=== PATIENT | female | born 1960 | race African-American/Black ===

== ENCOUNTER 2019-11-04 14:14 | Inpatient (IN) | payer BC ==
[~2019-11-04] VITALS: Ht 154.9 cm; Wt 56.2 kg
[2019-11-04] VITALS (8 sets, daily range): BP systolic 99–142; BP diastolic 53–90
[~2019-11-04 14:14] MED LIST: MECL-75 PO; ONDA4TAB10 SL
[2019-11-04 14:42] LABS: BASO # 0.1 x10^3/uL (0.0-0.2); BASO % 1 % (0-3); EOS % 0 % (0-3); HEMATOCRIT 40.8 % (36.0-47.0); HEMOGLOBIN 13.7 g/dL (12.0-15.5); LYMPH # 1.7 x10^3/uL (1.0-4.8); LYMPH % 28 % (24-48); MEAN CORPUSCULAR HEMOGLOBIN 31 pg (25-35); MEAN CORPUSCULAR HGB CONC 34 g/dL (31-37); MEAN CORPUSCULAR VOLUME 94 fL (79-100); MONO # 0.4 x10^3/uL (0.0-1.1); MONO % 6 % (0-9); NEUT # 3.9 x10^3/uL (1.8-7.7); NEUT % 65 % (31-73); PLATELET COUNT 466 x10^3/uL (140-400); RED BLOOD COUNT 4.35 x10^6/uL (3.50-5.40)
[2019-11-04] MEDS ORDERED: dilTIAZem IV PUSH 25 MG/5 ML VIAL IVP ONE (14:45)
[2019-11-04 14:53] LABS: PROTHROMBIN TIME PATIENT 13.1 SEC (11.7-14.0)
[2019-11-04 14:58] LABS: CALCIUM 9.5 mg/dL (8.5-10.1); CREATININE 1.3 mg/dL (0.6-1.0); GFR 50.6; POTASSIUM 4.6 mmol/L (3.5-5.1)
--- NOTE | 2019-11-04 15:01 | RAD ---
AP chest. HISTORY: Chest pain AP view was taken of the chest. Lungs are clear. Heart is normal in size. There is no effusion. IMPRESSION: 1. No acute chest disease. Electronically signed by: Isai Damico MD (11/04/2019 2:58 PM) [facility]
[2019-11-04 15:04] LABS: ALBUMIN 4.4 g/dL (3.4-5.0); ALBUMIN/GLOBULIN RATIO 1.3 (1.0-1.7); MAGNESIUM 1.6 mg/dL (1.8-2.4); TOTAL BILIRUBIN 0.4 mg/dL (0.2-1.0); TOTAL PROTEIN 7.9 g/dL (6.4-8.2)
[2019-11-04] MEDS ORDERED: IV NORMAL SALINE 1000ML BAG 1,000 ML IV ONE (15:15)
[2019-11-04] MEDS: DILTIAZEM HCL 125 MG in IV NORMAL SALINE 100ML 100 ML IV PRN ×2 (15:30→21:53)
--- NOTE | 2019-11-04 15:31 | PHYS DOC ---
Past Medical History Past Medical History: No Pertinent History, Other Additional Past Medical Histor: intermittent vertigo Past Surgical History: Other Additional Past Surgical Histo: D&C Smoking Status: Never Smoker Alcohol Use: Rarely Drug Use: None General Adult EDM: Chief Complaint: DIZZY/LIGHT HEADED HPI: HPI: Patient is a 58 year old female who presented to ER today for evaluation of feeling dizziness, heart palpitation, and mild chest pain while she was at work today. Patient says she has been experiencing a lot of stress today at work. Patient denies any cough or fever, no abdominal pain, no nausea vomiting. Patient says she had the same type symptoms in the past, she was diagnosed with vertigo. Review of Systems: Review of Systems: Constitutional: Denies fever or chills. [] Eyes: Denies change in visual acuity. [] HENT: Denies nasal congestion or sore throat. [] Respiratory: Denies cough or shortness of breath. [] Cardiovascular: Positive for chest pain and heart palpitation GI: Denies abdominal pain, nausea, vomiting, bloody stools or diarrhea. [] : Denies dysuria. [] Musculoskeletal: Denies back pain or joint pain. [] Integument: Denies rash. [] Neurologic: Positive for dizziness, no headache, no focal weakness or deficits. Endocrine: Denies polyuria or polydipsia. [] Lymphatic: Denies swollen glands. [] Psychiatric: Denies depression or anxiety. [] Heart Score: Risk Factors: Risk Factors: DM, Current or recent (<one month) smoker, HTN, HLP, family hist ory of CAD, obesity. Risk Scores: Score 0 - 3: 2.5% MACE over next 6 weeks - Discharge Home Score 4 - 6: 20.3% MACE over next 6 weeks - Admit for Clinical Observation Score 7 - 10: 72.7% MACE over next 6 weeks - Early Invasive Strategies Current Medications: Current Medications Medications (Trade) Dose Ordered Sig/Yolande Start Time Stop Time Status Last Admin Dose Admin Diltiazem HCl (Cardizem Iv Push) 20 mg 1X ONCE 11/04/19 14:45 11/04/19 14:48 DC 11/04/19 14:59 20 MG Diltiazem HCl 125 mg/Sodium Chloride 125 ml @ 5 mls/hr CONT PRN 7/6/20 15:15 Magnesium Sulfate 50 ml @ 25 mls/hr 1X ONCE 11/04/19 16:00 11/04/19 17:59 Sodium Chloride 1,000 ml @ 1,000 mls/hr 1X ONCE 11/04/19 15:15 11/04/19 16:14 11/04/19 15:06 1,000 MLS/HR Allergies: Allergies: Allergies Coded Allergies Type Severity Reaction Last Updated Verified [place]bler And Derivatives Allergy Severe ANAPHYLATIC 02/23/17 Yes Sulfa (Sulfonamide Antibiotics) Allergy Severe HIVES 02/23/17 Yes Physical Exam: PE: Constitutional: Well developed, well nourished, no acute distress, non-toxic appearance. [] HENT: Normocephalic, atraumatic, bilateral external ears normal, oropharynx m oist, no oral exudates, nose normal. [] Eyes: PERRLA, EOMI, conjunctiva normal, no discharge. [] Neck: Normal range of motion, no tenderness, supple, no stridor. [] Cardiovascular: Tachycardia with irregular rhythm rhythm, no murmur [] Lungs & Thorax: Bilateral breath sounds clear to auscultation [] Abdomen: Bowel sounds normal, soft, no tenderness, no masses, no pulsatile masses. [] Skin: Warm, dry, no erythema, no rash. [] Back: No tenderness, no CVA tenderness. [] Extremities: No tenderness, no cyanosis, no clubbing, ROM intact, no edema. [] Neurologic: Alert and oriented X 3, normal motor function, normal sensory function, no focal deficits noted. [] Psychologic: Affect normal, judgement normal, mood normal. [] Current Patient Data: Labs: Laboratory Tests Test 11/04/19 14:26 White Blood Count 6.0 x10^3/uL (4.0-11.0) Red Blood Count 4.35 x10^6/uL (3.50-5.40) Hemoglobin 13.7 g/dL (12.0-15.5) Hematocrit 40.8 % (36.0-47.0) Mean Corpuscular Volume 94 fL (79-100) Mean Corpuscular Hemoglobin 31 pg (25-35) Mean Corpuscular Hemoglobin Concent 34 g/dL (31-37) Red Cell Distribution Width 14.0 % (11.5-14.5) Platelet Count 466 x10^3/uL (140-400) H Neutrophils (%) (Auto) 65 % (31-73) Lymphocytes (%) (Auto) 28 % (24-48) Monocytes (%) (Auto) 6 % (0-9) Eosinophils (%) (Auto) 0 % (0-3) Basophils (%) (Auto) 1 % (0-3) Neutrophils # (Auto) 3.9 x10^3/uL (1.8-7.7) Lymphocytes # (Auto) 1.7 x10^3/uL (1.0-4.8) Monocytes # (Auto) 0.4 x10^3/uL (0.0-1.1) Eosinophils # (Auto) 0.0 x10^3/uL (0.0-0.7) Basophils # (Auto) 0.1 x10^3/uL (0.0-0.2) Prothrombin Time 13.1 SEC (11.7-14.0) Prothrombin Time INR 1.0 (0.8-1.1) Activated Partial Thromboplast Time 28 SEC (24-38) Sodium Level 143 mmol/L (136-145) Potassium Level 4.6 mmol/L (3.5-5.1) Chloride Level 103 mmol/L (98-107) Carbon Dioxide Level 20 mmol/L (21-32) L Anion Gap 20 (6-14) H Blood Urea Nitrogen 15 mg/dL (7-20) Creatinine 1.3 mg/dL (0.6-1.0) H Estimated GFR (Cockcroft-Gault) 50.6 BUN/Creatinine Ratio 12 (6-20) Glucose Level 81 mg/dL (70-99) Calcium Level 9.5 mg/dL (8.5-10.1) Magnesium Level 1.6 mg/dL (1.8-2.4) L Total Bilirubin 0.4 mg/dL (0.2-1.0) Aspartate Amino Transferase (AST) 34 U/L (15-37) Alanine Aminotransferase (ALT) 26 U/L (14-59) Alkaline Phosphatase 89 U/L (46-116) Troponin I Quantitative < 0.017 ng/mL (0.000-0.055) VB-Bvm-H-Type Natriuretic Peptide 112 pg/mL (0-124) Total Protein 7.9 g/dL (6.4-8.2) Albumin 4.4 g/dL (3.4-5.0) Albumin/Globulin Ratio 1.3 (1.0-1.7) Thyroid Stimulating Hormone (TSH) 1.835 uIU/mL (0.358-3.74) Laboratory Tests 11/04/19 14:26 Laboratory Tests 11/04/19 14:26 Vital Signs: Vital Signs Date Time Temp Pulse Resp B/P (MAP) Pulse Ox O2 Delivery O2 Flow Rate FiO2 11/04/19 14:59 142 139/84 11/04/19 14:26 98.8 22 100 Nasal Cannula 3.0 98.8 EKG: EKG: EKG was done at 1424, heart rate 137 beats per minutes, atrial flutter, no ST segment elevation. Radiology/Procedures: Radiology/Procedures: [][facility] [address] [place] [address] IMAGING REPORT Signed PATIENT: KELSY PARK ACCOUNT: [id number] : 1960 LOCATION: ER AGE: 58 SEX: F EXAM STATUS: REG ER ORD. PHYSICIAN: KINA DUTTON DO REASON: chest pain PROCEDURE: PORTABLE CHEST 1V AP chest. HISTORY: Chest pain AP view was taken of the chest. Lungs are clear. Heart is normal in size. There is no effusion. IMPRESSION: 1. No acute chest disease. Electronically signed by: Isai Damico MD (11/04/2019 2:58 PM) [facility] DICTATED and SIGNED BY: ISAI DAMICO MD DATE: 11/04/19 1458 Course & Med Decision Making: Course & Med Decision Making Pertinent Labs and Imaging studies reviewed. (See chart for details) Patient is a 58-year-old female who was evaluated in the ER due to dizziness with heart palpitation. Patient was found to have new onset atrial flutter, her magnesium level was low as well. Patient was given Cardizem IV bolus and was on Cardizem drip however it did not control her rate, her magnesium level was low, she was given magnesium replacement. Heart rate continues to be irregular and fast. It was noted that she had some trace of alcohol in her system, suspect that patient might be in withdrawal from alcohol therefore patient was given 1 mg of Ativan IV, she was spontaneous converted to normal sinus rhythm. We will admit her to hospital for further evaluation and treatment. Discussed with Dr. Palmer who agreed to admit the patient. Dragon Disclaimer: Dragon Disclaimer: This electronic medical record was generated, in whole or in part, using a voice recognition dictation system. Departure Departure Impression: Primary Impression: Atrial flutter with rapid ventricular response Additional Impression: Hypomagnesemia syndrome Disposition: ADMITTED INPATIENT Admitting Physician: ALLY (DR. PALMER) Condition: IMPROVED Referrals: GIOVANA REGAN DO (PCP) Scripts Metoprolol Tartrate (METOPROLOL TARTRATE) 25 Mg Tablet 25 MG PO BID for Atrial flutter for 30 Days, #60 TAB 11 Refills Prov: CHERI PALMER MD 11/05/19 Trazodone Hcl (TRAZODONE HCL) 50 Mg Tablet 50 MG PO PRN QHS PRN for INSOMNIA/anxiety for 30 Days, #30 TAB 11 Refills Prov: CHERI PALMER MD 11/05/19 Justicifation of Admission Dx: Justifications for Admission: Justification of Admission Dx: N/A KINA DUTTON DO Nov 04, 2019 15:31
[2019-11-04] MEDS ORDERED: MAGNESIUM SULFATE 2GM 50 ML IV ONE (16:00)
[2019-11-04 16:05] LABS: BILIRUBIN,URINE NEGATIVE (NEG); CLARITY,URINE CLEAR; COLOR,URINE YELLOW; NITRITE,URINE NEGATIVE (NEG); PH,URINE 6.5 (<5.0-8.0); PROTEIN,URINE 30 mg/dL (NEG-TRACE); UROBILINOGEN,URINE 0.2 mg/dL (0.2 mg/dL)
[2019-11-04 16:12] LABS: BACTERIA,URINE MODERATE /HPF (0-FEW); BARBITURATES NEG (NEG); BENZODIAZEPINES NEG (NEG); CANNABINOIDS NEG (NEG); COCAINE NEG (NEG); METHADONE NEG (NEG); OPIATES NEG (NEG); PHENCYCLIDINE NEG (NEG); RBC,URINE RARE /HPF (0-2); SQUAMOUS EPITHELIAL CELL,UR MANY /LPF
[2019-11-04 16:13] LABS: HYALINE CASTS, URINE OCCASIONAL /HPF
[2019-11-04 16:14] LABS: AMPHETAMINE/METHAMPHETAMINE NEG (NEG)
--- NOTE | 2019-11-04 16:21 | PDOC1 ---
History and Physical Date of Admission Date of Admission DATE: 11/04/19 TIME: 16:20 Identification/Chief Complaint Chief Complaint Dizziness Source Source: Patient History of Present Illness History of Present Illness Ms Manzano is a 58yo F with no significant PMHx who presents to [facility] ED c/o via ems from work when she started to feel dizzy, lightheaded, and short of breath. She started to feel a hot flash and vomited once. She did initially have some chest pain, but it has since resolved. She denies any n,v,d fever or chills. pt states she feels like her heart is racing. This has happened in the past and it went away on its own about 1 year ago. 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 CXR clear. Labs show Na 143, K 4.6, Mg 1.6, BUN 15, Cr 1.3, glucose 81, TSH 1.8. CBC WNL. UDS positive for ethanol. EKG - 137bpm atrial flutter with no ST segment elevations. Started on cardizem GTT and admitted for further care. Past Medical History Cardiovascular: No pertinent hx Past Surgical History Past Surgical History: Other (D/C) Family History Family History: High Cholestrol, Hypertension Social History Smoke: No ALCOHOL: social Drugs: None Current Medications Current Medications Current Medications Diltiazem HCl (Cardizem Iv Push) 20 mg 1X ONCE IVP Last administered on 11/04/19at 14:59; Start 11/04/19 at 14:45; Stop 11/04/19 at 14:48; Status DC Sodium Chloride 1,000 ml @ 1,000 mls/hr 1X ONCE IV Last administered on 11/04/19at 15:06; Start 11/04/19 at 15:15; Stop 11/04/19 at 16:14; Status DC Diltiazem HCl 125 mg/Sodium Chloride 125 ml @ 5 mls/hr CONT PRN IV SEE I/O RECORD Last administered on 11/04/19at 15:30; Start 11/04/19 at 15:15 Magnesium Sulfate 50 ml @ 25 mls/hr 1X ONCE IV Last administered on 11/04/19at 15:51; Start 11/04/19 at 16:00; Stop 11/04/19 at 17:59 Active Scripts Active Zofran Odt (Ondansetron) 4 Mg Tab.rapdis 1 Tab SL Q8HRS Meclizine Hcl 25 Mg Tablet 1 Tab PO PRN TID PRN Zofran Odt (Ondansetron) 4 Mg Tab.rapdis 1 Tab SL Q8HRS Allergies Allergies: Coded Allergies: [place] And Derivatives (Verified Allergy, Severe, ANAPHYLATIC, 02/23/17) Sulfa (Sulfonamide Antibiotics) (Verified Allergy, Severe, HIVES, 02/23/17) ROS General: YES: Fatigue, Malaise; No: Chills, Night Sweats, Appetite, Other PSYCHOLOGICAL ROS: YES: Anxiety; No: Behavioral Disorder, Concentration difficultie, Decreased libido, Depression, Disorientation, Hallucinations, Hostility, Irritablity, Memory difficulties, Mood Swings, Obsessive thoughts, Physical abuse, Sexual abuse, Sleep disturbances, Suicidal ideation, Other Eyes: No Blurry vision, No Decreased vision, No Double vision, No Dry eyes, No Excessive tearing, No Eye Pain, No Itchy Eyes, No Loss of vision, No Photophobia, No Scotomata, No Uses contacts, No Uses glasses, No Other HEENT: No: Heacaches, Visual Changes, Hearing change, Nasal congestion, Nasal discharge, Oral lesions, Sinus pain, Sore Throat, Epistaxis, Sneezing, Snoring, Tinnitus, Vertigo, Vocal changes, Other ALLERGY AND IMMUNOLOGY: No: Hives, Insect Bite Sensitivity, Itchy/Watery Eyes, Nasal Congestion, Post Nasal Drip, Seasonal Allergies, Other Hematological and Lymphatic: No: Bleeding Problems, Blood Clots, Blood Transfusions, Brusing, Night Sweats, Pallor, Swollen Lymph Nodes, Other ENDOCRINE: No: Breast Changes, Galactorrhea, Hair Pattern Changes, Hot Flashes, Malaise/lethargy, Mood Swings, Palpitations, Polydipsia/polyuria, Skin Changes, Temperature Intolerance, Unexpected Weight Changes, Other Breast: No New/Changing Breast Lumps, No Nipple changes, No Nipple discharge, No Other Respiratory: YES: Shortness of breath, SOB with excertion; No: Cough, Hemoptysis, Orthopnea, Pleuritic Pain, Sputum Changes, Stridor, Tachypnea, Wheezing, Other Cardiovascular: yes Chest Pain, yes Palpitations; No Orthopnea, No Paroxysmal Noc. Dyspnea, No Edema, No Lt Headedness, No Other Gastrointestinal: No Nausea, No Vomiting, No Abdominal Pain, No Diarrhea, No Constipation, No Melena, No Hematochezia, No Other Genitourinary: No Dysuria, No Frequency, No Incontinence, No Hematuria, No Retention, No Discharge, No Urgency, No Pain, No Flank Pain, No Other, No , No , No , No , No , No , No Musculoskeletal: No Gait Disturbance, No Joint Pain, No Joint Stiffness, No Joint Swelling, No Muscle Pain, No Muscular Weakness, No Pain In:, No Swelling In:, No Other Neurological: No Behavorial Changes, No Bowel/Bladder ControlChng, No Confusion, No Dizziness, No Gait Disturbance, No Headaches, No Impaired Coord/balance, No Memory Loss, No Numbness/Tingling, No Seizures, No Speech Problems, No Tremors, No Visual Changes, No Weakness, No Other Skin: No Dry Skin, No Eczema, No Hair Changes, No Lumps, No Mole Changes, No Mottling, No Nail Changes, No Pruritus, No Rash, No Skin Lesion Changes, No Other, No Acne Physical Exam General: Alert, Oriented X3, Cooperative, No acute distress HEENT: Atraumatic, PERRLA, EOMI, Mucous membr. moist/pink Lungs: Clear to auscultation, Normal air movement Heart: irregularly irregular Abdomen: Normal bowel sounds, Soft, No tenderness, No hepatosplenomegaly, No masses Rectal Exam: not examined Extremities: No clubbing, No cyanosis, No edema, Normal pulses, No tenderness/swelling Skin: No rashes, No breakdown, No significant lesion Neuro: Normal gait, Normal speech, Strength at 5/5 X4 ext, Normal tone, Sensation intact, Cranial nerves 3-12 NL, Reflexes 2+ Psych/Mental Status: Mental status NL, Mood NL Vitals Vitals Vital Signs Date Time Temp Pulse Resp B/P (MAP) Pulse Ox O2 Delivery O2 Flow Rate FiO2 11/04/19 14:59 142 139/84 11/04/19 14:26 98.8 22 100 Nasal Cannula 3.0 98.8 Labs Labs Laboratory Tests Test 11/04/19 14:26 11/04/19 15:58 White Blood Count 6.0 x10^3/uL (4.0-11.0) Red Blood Count 4.35 x10^6/uL (3.50-5.40) Hemoglobin 13.7 g/dL (12.0-15.5) Hematocrit 40.8 % (36.0-47.0) Mean Corpuscular Volume 94 fL (79-100) Mean Corpuscular Hemoglobin 31 pg (25-35) Mean Corpuscular Hemoglobin Concent 34 g/dL (31-37) Red Cell Distribution Width 14.0 % (11.5-14.5) Platelet Count 466 x10^3/uL (140-400) Neutrophils (%) (Auto) 65 % (31-73) Lymphocytes (%) (Auto) 28 % (24-48) Monocytes (%) (Auto) 6 % (0-9) Eosinophils (%) (Auto) 0 % (0-3) Basophils (%) (Auto) 1 % (0-3) Neutrophils # (Auto) 3.9 x10^3/uL (1.8-7.7) Lymphocytes # (Auto) 1.7 x10^3/uL (1.0-4.8) Monocytes # (Auto) 0.4 x10^3/uL (0.0-1.1) Eosinophils # (Auto) 0.0 x10^3/uL (0.0-0.7) Basophils # (Auto) 0.1 x10^3/uL (0.0-0.2) Prothrombin Time 13.1 SEC (11.7-14.0) Prothromb Time International Ratio 1.0 (0.8-1.1) Activated Partial Thromboplast Time 28 SEC (24-38) Sodium Level 143 mmol/L (136-145) Potassium Level 4.6 mmol/L (3.5-5.1) Chloride Level 103 mmol/L (98-107) Carbon Dioxide Level 20 mmol/L (21-32) Anion Gap 20 (6-14) Blood Urea Nitrogen 15 mg/dL (7-20) Creatinine 1.3 mg/dL (0.6-1.0) Estimated GFR (Cockcroft-Gault) 50.6 BUN/Creatinine Ratio 12 (6-20) Glucose Level 81 mg/dL (70-99) Calcium Level 9.5 mg/dL (8.5-10.1) Magnesium Level 1.6 mg/dL (1.8-2.4) Total Bilirubin 0.4 mg/dL (0.2-1.0) Aspartate Amino Transf (AST/SGOT) 34 U/L (15-37) Alanine Aminotransferase (ALT/SGPT) 26 U/L (14-59) Alkaline Phosphatase 89 U/L (46-116) Troponin I Quantitative < 0.017 ng/mL (0.000-0.055) YV-Bob-P-Type Natriuretic Peptide 112 pg/mL (0-124) Total Protein 7.9 g/dL (6.4-8.2) Albumin 4.4 g/dL (3.4-5.0) Albumin/Globulin Ratio 1.3 (1.0-1.7) Thyroid Stimulating Hormone (TSH) 1.835 uIU/mL (0.358-3.74) Urine Collection Type Unknown Urine Color Yellow Urine Clarity Clear Urine pH 6.5 (<5.0-8.0) Urine Specific Gray 1.020 (1.000-1.030) Urine Protein 30 mg/dL (NEG-TRACE) Urine Glucose (UA) Negative mg/dL (NEG) Urine Ketones (Stick) 15 mg/dL (NEG) Urine Blood Negative (NEG) Urine Nitrite Negative (NEG) Urine Bilirubin Negative (NEG) Urine Urobilinogen Dipstick 0.2 mg/dL (0.2 mg/dL) Urine Leukocyte Esterase Negative (NEG) Urine RBC Rare /HPF (0-2) Urine WBC 1-4 /HPF (0-4) Urine Squamous Epithelial Cells Many /LPF Urine Bacteria Moderate /HPF (0-FEW) Urine Hyaline Casts Occasional /HPF Urine Mucus Slight /LPF Urine Opiates Screen Neg (NEG) Urine Methadone Screen Neg (NEG) Urine Barbiturates Neg (NEG) Urine Phencyclidine Screen Neg (NEG) Urine Amphetamine/Methamphetamine Neg (NEG) Urine Benzodiazepines Screen Neg (NEG) Urine Cocaine Screen Neg (NEG) Urine Cannabinoids Screen Neg (NEG) Urine Ethyl Alcohol Pos (NEG) Laboratory Tests Test 11/04/19 14:26 11/04/19 15:58 White Blood Count 6.0 x10^3/uL (4.0-11.0) Red Blood Count 4.35 x10^6/uL (3.50-5.40) Hemoglobin 13.7 g/dL (12.0-15.5) Hematocrit 40.8 % (36.0-47.0) Mean Corpuscular Volume 94 fL (79-100) Mean Corpuscular Hemoglobin 31 pg (25-35) Mean Corpuscular Hemoglobin Concent 34 g/dL (31-37) Red Cell Distribution Width 14.0 % (11.5-14.5) Platelet Count 466 x10^3/uL (140-400) Neutrophils (%) (Auto) 65 % (31-73) Lymphocytes (%) (Auto) 28 % (24-48) Monocytes (%) (Auto) 6 % (0-9) Eosinophils (%) (Auto) 0 % (0-3) Basophils (%) (Auto) 1 % (0-3) Neutrophils # (Auto) 3.9 x10^3/uL (1.8-7.7) Lymphocytes # (Auto) 1.7 x10^3/uL (1.0-4.8) Monocytes # (Auto) 0.4 x10^3/uL (0.0-1.1) Eosinophils # (Auto) 0.0 x10^3/uL (0.0-0.7) Basophils # (Auto) 0.1 x10^3/uL (0.0-0.2) Prothrombin Time 13.1 SEC (11.7-14.0) Prothromb Time International Ratio 1.0 (0.8-1.1) Activated Partial Thromboplast Time 28 SEC (24-38) Sodium Level 143 mmol/L (136-145) Potassium Level 4.6 mmol/L (3.5-5.1) Chloride Level 103 mmol/L (98-107) Carbon Dioxide Level 20 mmol/L (21-32) Anion Gap 20 (6-14) Blood Urea Nitrogen 15 mg/dL (7-20) Creatinine 1.3 mg/dL (0.6-1.0) Estimated GFR (Cockcroft-Gault) 50.6 BUN/Creatinine Ratio 12 (6-20) Glucose Level 81 mg/dL (70-99) Calcium Level 9.5 mg/dL (8.5-10.1) Magnesium Level 1.6 mg/dL (1.8-2.4) Total Bilirubin 0.4 mg/dL (0.2-1.0) Aspartate Amino Transf (AST/SGOT) 34 U/L (15-37) Alanine Aminotransferase (ALT/SGPT) 26 U/L (14-59) Alkaline Phosphatase 89 U/L (46-116) Troponin I Quantitative < 0.017 ng/mL (0.000-0.055) YK-Tmm-D-Type Natriuretic Peptide 112 pg/mL (0-124) Total Protein 7.9 g/dL (6.4-8.2) Albumin 4.4 g/dL (3.4-5.0) Albumin/Globulin Ratio 1.3 (1.0-1.7) Thyroid Stimulating Hormone (TSH) 1.835 uIU/mL (0.358-3.74) Urine Collection Type Unknown Urine Color Yellow Urine Clarity Clear Urine pH 6.5 (<5.0-8.0) Urine Specific Gray 1.020 (1.000-1.030) Urine Protein 30 mg/dL (NEG-TRACE) Urine Glucose (UA) Negative mg/dL (NEG) Urine Ketones (Stick) 15 mg/dL (NEG) Urine Blood Negative (NEG) Urine Nitrite Negative (NEG) Urine Bilirubin Negative (NEG) Urine Urobilinogen Dipstick 0.2 mg/dL (0.2 mg/dL) Urine Leukocyte Esterase Negative (NEG) Urine RBC Rare /HPF (0-2) Urine WBC 1-4 /HPF (0-4) Urine Squamous Epithelial Cells Many /LPF Urine Bacteria Moderate /HPF (0-FEW) Urine Hyaline Casts Occasional /HPF Urine Mucus Slight /LPF Urine Opiates Screen Neg (NEG) Urine Methadone Screen Neg (NEG) Urine Barbiturates Neg (NEG) Urine Phencyclidine Screen Neg (NEG) Urine Amphetamine/Methamphetamine Neg (NEG) Urine Benzodiazepines Screen Neg (NEG) Urine Cocaine Screen Neg (NEG) Urine Cannabinoids Screen Neg (NEG) Urine Ethyl Alcohol Pos (NEG) Images Images CXR: AP view was taken of the chest. Lungs are clear. Heart is normal in size. There is no effusion. IMPRESSION: 1. No acute chest disease. VTE Prophylaxis Ordered VTE Prophylaxis Devices: No VTE Pharmacological Prophylaxi: Yes Assessment/Plan Assessment/Plan A/P: Atrial flutter with RVR - will cont cardizem. She is a good candidate for cardioversion/ablation given her excellent physical fitness and functional status, will start eliquis as well, consult cards Hypomagnesemia - possible etiology of aflutter Alcohol use - may be responsible for afib episode. No alcohol problem history FEN - Cardiac diet, npo after midnight PPX - eliquis FULL CODE Dispo - inpatient for above Justicifation of Admission Dx: Justifications for Admission: Justification of Admission Dx: Yes CHF: Cardiac Arrhythmias CHERI PALMER MD Nov 04, 2019 16:21
[2019-11-04] MEDS ORDERED: ACETAMINOPHEN 325 MG TABLET. PO PRN (21:15)
[2019-11-04] MEDS ORDERED: ZOLPIDEM 5 MG TABLET. PO PRN (21:15)
[2019-11-04] MEDS ORDERED: traZODone 50 MG TABLET. PO PRN (21:15)
[2019-11-04] MEDS ORDERED: ANTI-COAG MONITOR BY PHARMACY. MC PRN (21:15)
[2019-11-04] MEDS ORDERED: ONDANSETRON PF 4 MG/2 ML VIAL. IV PRN (21:15)
[2019-11-04] MEDS ORDERED: APIXABAN 5 MG TABLET. PO SCH (22:00)
[2019-11-05] VITALS (10 sets, daily range): BP systolic 92–142; BP diastolic 54–80
[2019-11-05 06:16] LABS: CALCIUM 8.7 mg/dL (8.5-10.1); CREATININE 0.9 mg/dL (0.6-1.0); GFR 77.3; MAGNESIUM 2.2 mg/dL (1.8-2.4); POTASSIUM 3.8 mmol/L (3.5-5.1)
--- NOTE | 2019-11-05 08:36 | EKG ---
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
--- NOTE | 2019-11-05 08:51 | PDOC ---
PROGRESS NOTES Chief Complaint Chief Complaint A/P: Atrial flutter with RVR - will cont cardizem. She is a good candidate for cardioversion/ablation given her excellent physical fitness and functional status, will start eliquis as well, consult cards Hypomagnesemia - possible etiology of aflutter, replaced Alcohol use - may be responsible for afib episode. No alcohol problem history Weakness and debility - will have PT evaluated gait FEN - Cardiac diet, npo after midnight PPX - eliquis FULL CODE Dispo - inpatient for above History of Present Illness History of Present Illness Ms Manzano is a 58yo F with no significant PMHx who presents to [facility] ED c/o via ems from work when she started to feel dizzy, lightheaded, and short of breath. She started to feel a hot flash and vomited once. She did initially have some chest pain, but it has since resolved. She denies any n,v,d fever or chills. pt states she feels like her heart is racing. This has happened in the past and it went away on its own about 1 year ago. 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 Labs show Na 143, K 4.6, Mg 1.6, BUN 15, Cr 1.3, glucose 81, TSH 1.8. CBC WNL. UDS positive for ethanol. EKG - 137bpm atrial flutter with no ST segment elevations. Started on cardizem GTT and admitted for further care. Converted to sinus overnight. Still on cardizem GTT. Awaiting echocardiogram. She is feeling less short of breath, but is still feeling weak and unsteady. Mag 2.2, K 3.8. Awaiting cardiology evaluation. Vitals Vitals Vital Signs Date Time Temp Pulse Resp B/P (MAP) Pulse Ox O2 Delivery O2 Flow Rate FiO2 11/05/19 07:27 98.1 79 18 126/71 (89) 99 Room Air 98.1 11/04/19 14:26 3.0 Physical Exam General: Alert, Oriented X3, Cooperative, No acute distress Abdomen: Normal bowel sounds, Soft, No tenderness, No hepatosplenomegaly, No masses Extremities: No clubbing, No cyanosis, No edema, Normal pulses, No tenderness/swelling Skin: No rashes, No breakdown, No significant lesion Labs LABS Laboratory Tests Test 11/04/19 14:26 11/04/19 15:58 11/05/19 04:25 White Blood Count 6.0 x10^3/uL (4.0-11.0) Red Blood Count 4.35 x10^6/uL (3.50-5.40) Hemoglobin 13.7 g/dL (12.0-15.5) Hematocrit 40.8 % (36.0-47.0) Mean Corpuscular Volume 94 fL (79-100) Mean Corpuscular Hemoglobin 31 pg (25-35) Mean Corpuscular Hemoglobin Concent 34 g/dL (31-37) Red Cell Distribution Width 14.0 % (11.5-14.5) Platelet Count 466 x10^3/uL (140-400) Neutrophils (%) (Auto) 65 % (31-73) Lymphocytes (%) (Auto) 28 % (24-48) Monocytes (%) (Auto) 6 % (0-9) Eosinophils (%) (Auto) 0 % (0-3) Basophils (%) (Auto) 1 % (0-3) Neutrophils # (Auto) 3.9 x10^3/uL (1.8-7.7) Lymphocytes # (Auto) 1.7 x10^3/uL (1.0-4.8) Monocytes # (Auto) 0.4 x10^3/uL (0.0-1.1) Eosinophils # (Auto) 0.0 x10^3/uL (0.0-0.7) Basophils # (Auto) 0.1 x10^3/uL (0.0-0.2) Prothrombin Time 13.1 SEC (11.7-14.0) Prothromb Time International Ratio 1.0 (0.8-1.1) Activated Partial Thromboplast Time 28 SEC (24-38) Sodium Level 143 mmol/L (136-145) 136 mmol/L (136-145) Potassium Level 4.6 mmol/L (3.5-5.1) 3.8 mmol/L (3.5-5.1) Chloride Level 103 mmol/L (98-107) 103 mmol/L (98-107) Carbon Dioxide Level 20 mmol/L (21-32) 23 mmol/L (21-32) Anion Gap 20 (6-14) 10 (6-14) Blood Urea Nitrogen 15 mg/dL (7-20) 10 mg/dL (7-20) Creatinine 1.3 mg/dL (0.6-1.0) 0.9 mg/dL (0.6-1.0) Estimated GFR (Cockcroft-Gault) 50.6 77.3 BUN/Creatinine Ratio 12 (6-20) Glucose Level 81 mg/dL (70-99) 92 mg/dL (70-99) Calcium Level 9.5 mg/dL (8.5-10.1) 8.7 mg/dL (8.5-10.1) Magnesium Level 1.6 mg/dL (1.8-2.4) 2.2 mg/dL (1.8-2.4) Total Bilirubin 0.4 mg/dL (0.2-1.0) Aspartate Amino Transf (AST/SGOT) 34 U/L (15-37) Alanine Aminotransferase (ALT/SGPT) 26 U/L (14-59) Alkaline Phosphatase 89 U/L (46-116) Troponin I Quantitative < 0.017 ng/mL (0.000-0.055) WM-Kub-[id number]-Type Natriuretic Peptide 112 pg/mL (0-124) Total Protein 7.9 g/dL (6.4-8.2) Albumin 4.4 g/dL (3.4-5.0) Albumin/Globulin Ratio 1.3 (1.0-1.7) Thyroid Stimulating Hormone (TSH) 1.835 uIU/mL (0.358-3.74) Ethyl Alcohol Level 11 mg/dL (0-10) Urine Collection Type Unknown Urine Color Yellow Urine Clarity Clear Urine pH 6.5 (<5.0-8.0) Urine Specific [place] 1.020 (1.000-1.030) Urine Protein 30 mg/dL (NEG-TRACE) Urine Glucose (UA) Negative mg/dL (NEG) Urine Ketones (Stick) 15 mg/dL (NEG) Urine Blood Negative (NEG) Urine Nitrite Negative (NEG) Urine Bilirubin Negative (NEG) Urine Urobilinogen Dipstick 0.2 mg/dL (0.2 mg/dL) Urine Leukocyte Esterase Negative (NEG) Urine RBC Rare /HPF (0-2) Urine WBC 1-4 /HPF (0-4) Urine Squamous Epithelial Cells Many /LPF Urine Bacteria Moderate /HPF (0-FEW) Urine Hyaline Casts Occasional /HPF Urine Mucus Slight /LPF Urine Opiates Screen Neg (NEG) Urine Methadone Screen Neg (NEG) Urine Barbiturates Neg (NEG) Urine Phencyclidine Screen Neg (NEG) Urine Amphetamine/Methamphetamine Neg (NEG) Urine Benzodiazepines Screen Neg (NEG) Urine Cocaine Screen Neg (NEG) Urine Cannabinoids Screen Neg (NEG) Urine Ethyl Alcohol Pos (NEG) Assessment and Plan Assessmemt and Plan Problems Medical Problems: (1) Atrial flutter with rapid ventricular response Status: Acute (2) Hypomagnesemia syndrome Status: Acute Comment Review of Relevant I have reviewed the following items kylee (where applicable) has been applied. Labs Laboratory Tests Test 11/04/19 14:26 11/04/19 15:58 11/05/19 04:25 White Blood Count 6.0 x10^3/uL (4.0-11.0) Red Blood Count 4.35 x10^6/uL (3.50-5.40) Hemoglobin 13.7 g/dL (12.0-15.5) Hematocrit 40.8 % (36.0-47.0) Mean Corpuscular Volume 94 fL (79-100) Mean Corpuscular Hemoglobin 31 pg (25-35) Mean Corpuscular Hemoglobin Concent 34 g/dL (31-37) Red Cell Distribution Width 14.0 % (11.5-14.5) Platelet Count 466 x10^3/uL (140-400) Neutrophils (%) (Auto) 65 % (31-73) Lymphocytes (%) (Auto) 28 % (24-48) Monocytes (%) (Auto) 6 % (0-9) Eosinophils (%) (Auto) 0 % (0-3) Basophils (%) (Auto) 1 % (0-3) Neutrophils # (Auto) 3.9 x10^3/uL (1.8-7.7) Lymphocytes # (Auto) 1.7 x10^3/uL (1.0-4.8) Monocytes # (Auto) 0.4 x10^3/uL (0.0-1.1) Eosinophils # (Auto) 0.0 x10^3/uL (0.0-0.7) Basophils # (Auto) 0.1 x10^3/uL (0.0-0.2) Prothrombin Time 13.1 SEC (11.7-14.0) Prothromb Time International Ratio 1.0 (0.8-1.1) Activated Partial Thromboplast Time 28 SEC (24-38) Sodium Level 143 mmol/L (136-145) 136 mmol/L (136-145) Potassium Level 4.6 mmol/L (3.5-5.1) 3.8 mmol/L (3.5-5.1) Chloride Level 103 mmol/L (98-107) 103 mmol/L (98-107) Carbon Dioxide Level 20 mmol/L (21-32) 23 mmol/L (21-32) Anion Gap 20 (6-14) 10 (6-14) Blood Urea Nitrogen 15 mg/dL (7-20) 10 mg/dL (7-20) Creatinine 1.3 mg/dL (0.6-1.0) 0.9 mg/dL (0.6-1.0) Estimated GFR (Cockcroft-Gault) 50.6 77.3 BUN/Creatinine Ratio 12 (6-20) Glucose Level 81 mg/dL (70-99) 92 mg/dL (70-99) Calcium Level 9.5 mg/dL (8.5-10.1) 8.7 mg/dL (8.5-10.1) Magnesium Level 1.6 mg/dL (1.8-2.4) 2.2 mg/dL (1.8-2.4) Total Bilirubin 0.4 mg/dL (0.2-1.0) Aspartate Amino Transf (AST/SGOT) 34 U/L (15-37) Alanine Aminotransferase (ALT/SGPT) 26 U/L (14-59) Alkaline Phosphatase 89 U/L (46-116) Troponin I Quantitative < 0.017 ng/mL (0.000-0.055) BR-Pmt-P-Type Natriuretic Peptide 112 pg/mL (0-124) Total Protein 7.9 g/dL (6.4-8.2) Albumin 4.4 g/dL (3.4-5.0) Albumin/Globulin Ratio 1.3 (1.0-1.7) Thyroid Stimulating Hormone (TSH) 1.835 uIU/mL (0.358-3.74) Ethyl Alcohol Level 11 mg/dL (0-10) Urine Collection Type Unknown Urine Color Yellow Urine Clarity Clear Urine pH 6.5 (<5.0-8.0) Urine Specific [place] 1.020 (1.000-1.030) Urine Protein 30 mg/dL (NEG-TRACE) Urine Glucose (UA) Negative mg/dL (NEG) Urine Ketones (Stick) 15 mg/dL (NEG) Urine Blood Negative (NEG) Urine Nitrite Negative (NEG) Urine Bilirubin Negative (NEG) Urine Urobilinogen Dipstick 0.2 mg/dL (0.2 mg/dL) Urine Leukocyte Esterase Negative (NEG) Urine RBC Rare /HPF (0-2) Urine WBC 1-4 /HPF (0-4) Urine Squamous Epithelial Cells Many /LPF Urine Bacteria Moderate /HPF (0-FEW) Urine Hyaline Casts Occasional /HPF Urine Mucus Slight /LPF Urine Opiates Screen Neg (NEG) Urine Methadone Screen Neg (NEG) Urine Barbiturates Neg (NEG) Urine Phencyclidine Screen Neg (NEG) Urine Amphetamine/Methamphetamine Neg (NEG) Urine Benzodiazepines Screen Neg (NEG) Urine Cocaine Screen Neg (NEG) Urine Cannabinoids Screen Neg (NEG) Urine Ethyl Alcohol Pos (NEG) Laboratory Tests Test 11/04/19 14:26 11/04/19 15:58 11/05/19 04:25 White Blood Count 6.0 x10^3/uL (4.0-11.0) Red Blood Count 4.35 x10^6/uL (3.50-5.40) Hemoglobin 13.7 g/dL (12.0-15.5) Hematocrit 40.8 % (36.0-47.0) Mean Corpuscular Volume 94 fL (79-100) Mean Corpuscular Hemoglobin 31 pg (25-35) Mean Corpuscular Hemoglobin Concent 34 g/dL (31-37) Red Cell Distribution Width 14.0 % (11.5-14.5) Platelet Count 466 x10^3/uL (140-400) Neutrophils (%) (Auto) 65 % (31-73) Lymphocytes (%) (Auto) 28 % (24-48) Monocytes (%) (Auto) 6 % (0-9) Eosinophils (%) (Auto) 0 % (0-3) Basophils (%) (Auto) 1 % (0-3) Neutrophils # (Auto) 3.9 x10^3/uL (1.8-7.7) Lymphocytes # (Auto) 1.7 x10^3/uL (1.0-4.8) Monocytes # (Auto) 0.4 x10^3/uL (0.0-1.1) Eosinophils # (Auto) 0.0 x10^3/uL (0.0-0.7) Basophils # (Auto) 0.1 x10^3/uL (0.0-0.2) Prothrombin Time 13.1 SEC (11.7-14.0) Prothromb Time International Ratio 1.0 (0.8-1.1) Activated Partial Thromboplast Time 28 SEC (24-38) Sodium Level 143 mmol/L (136-145) 136 mmol/L (136-145) Potassium Level 4.6 mmol/L (3.5-5.1) 3.8 mmol/L (3.5-5.1) Chloride Level 103 mmol/L (98-107) 103 mmol/L (98-107) Carbon Dioxide Level 20 mmol/L (21-32) 23 mmol/L (21-32) Anion Gap 20 (6-14) 10 (6-14) Blood Urea Nitrogen 15 mg/dL (7-20) 10 mg/dL (7-20) Creatinine 1.3 mg/dL (0.6-1.0) 0.9 mg/dL (0.6-1.0) Estimated GFR (Cockcroft-Gault) 50.6 77.3 BUN/Creatinine Ratio 12 (6-20) Glucose Level 81 mg/dL (70-99) 92 mg/dL (70-99) Calcium Level 9.5 mg/dL (8.5-10.1) 8.7 mg/dL (8.5-10.1) Magnesium Level 1.6 mg/dL (1.8-2.4) 2.2 mg/dL (1.8-2.4) Total Bilirubin 0.4 mg/dL (0.2-1.0) Aspartate Amino Transf (AST/SGOT) 34 U/L (15-37) Alanine Aminotransferase (ALT/SGPT) 26 U/L (14-59) Alkaline Phosphatase 89 U/L (46-116) Troponin I Quantitative < 0.017 ng/mL (0.000-0.055) KM-Tih-B-Type Natriuretic Peptide 112 pg/mL (0-124) Total Protein 7.9 g/dL (6.4-8.2) Albumin 4.4 g/dL (3.4-5.0) Albumin/Globulin Ratio 1.3 (1.0-1.7) Thyroid Stimulating Hormone (TSH) 1.835 uIU/mL (0.358-3.74) Ethyl Alcohol Level 11 mg/dL (0-10) Urine Collection Type Unknown Urine Color Yellow Urine Clarity Clear Urine pH 6.5 (<5.0-8.0) Urine Specific [place] 1.020 (1.000-1.030) Urine Protein 30 mg/dL (NEG-TRACE) Urine Glucose (UA) Negative mg/dL (NEG) Urine Ketones (Stick) 15 mg/dL (NEG) Urine Blood Negative (NEG) Urine Nitrite Negative (NEG) Urine Bilirubin Negative (NEG) Urine Urobilinogen Dipstick 0.2 mg/dL (0.2 mg/dL) Urine Leukocyte Esterase Negative (NEG) Urine RBC Rare /HPF (0-2) Urine WBC 1-4 /HPF (0-4) Urine Squamous Epithelial Cells Many /LPF Urine Bacteria Moderate /HPF (0-FEW) Urine Hyaline Casts Occasional /HPF Urine Mucus Slight /LPF Urine Opiates Screen Neg (NEG) Urine Methadone Screen Neg (NEG) Urine Barbiturates Neg (NEG) Urine Phencyclidine Screen Neg (NEG) Urine Amphetamine/Methamphetamine Neg (NEG) Urine Benzodiazepines Screen Neg (NEG) Urine Cocaine Screen Neg (NEG) Urine Cannabinoids Screen Neg (NEG) Urine Ethyl Alcohol Pos (NEG) Medications Current Medications Diltiazem HCl (Cardizem Iv Push) 20 mg 1X ONCE IVP Last administered on 11/04/19at 14:59; Start 11/04/19 at 14:45; Stop 11/04/19 at 14:48; Status DC Sodium Chloride 1,000 ml @ 1,000 mls/hr 1X ONCE IV Last administered on 11/04/19at 15:06; Start 11/04/19 at 15:15; Stop 11/04/19 at 16:14; Status DC Diltiazem HCl 125 mg/Sodium Chloride 125 ml @ 5 mls/hr CONT PRN IV SEE I/O RECORD Last administered on 11/04/19at 21:53; Start 11/04/19 at 15:15 Magnesium Sulfate 50 ml @ 25 mls/hr 1X ONCE IV Last administered on 11/04/19at 15:51; Start 11/04/19 at 16:00; Stop 11/04/19 at 17:59; Status DC Lorazepam (Ativan Inj) 1 mg 1X ONCE IVP Last administered on 11/04/19at 16:49; Start 11/04/19 at 19:45; Stop 11/04/19 at 19:46; Status DC Lorazepam (Ativan Inj) 2 mg STK-MED ONCE .ROUTE ; Start 11/04/19 at 16:45; Stop 11/04/19 at 16:45; Status DC Trazodone HCl (Desyrel) 50 mg PRN QHS PRN PO INSOMNIA 1ST CHOICE Last administered on 11/04/19at 22:01; Start 11/04/19 at 21:15 Apixaban (Eliquis) 5 mg BID PO Last administered on 11/04/19at 21:53; Start 11/04/19 at 22:00 Ondansetron HCl (Zofran) 4 mg PRN Q4HRS PRN IV NAUSEA/VOMITING 1st choice; Start 11/04/19 at 21:15 Zolpidem Tartrate (Ambien) 5 mg PRN QHS PRN PO INSOMNIA 2ND CHOICE; Start 11/04/19 at 21:15 Acetaminophen (Tylenol) 650 mg PRN Q4HRS PRN PO TEMP OVER 100.4F OR MILD PAIN; Start 11/04/19 at 21:15 Info (Anti-Coagulation Monitoring By Pharmacy) 1 each PRN DAILY PRN MC SEE COMMENTS Last administered on 11/05/19at 03:37; Start 11/04/19 at 21:15 Active Scripts Active Zofran Odt (Ondansetron) 4 Mg Tab.rapdis 1 Tab SL Q8HRS Meclizine Hcl 25 Mg Tablet 1 Tab PO PRN TID PRN Zofran Odt (Ondansetron) 4 Mg Tab.rapdis 1 Tab SL Q8HRS Vitals/I & O Vital Sign - Last 24 Hours 11/04/19 11/04/19 11/04/19 11/04/19 14:26 14:45 14:59 15:00 Temp 98.8 98.8 Pulse 121 138 142 136 Resp 22 B/P (MAP) 185/88 (120) 139/84 Pulse Ox 100 99 99 O2 Delivery Nasal Cannula O2 Flow Rate 3.0 11/04/19 11/04/19 11/04/19 11/04/19 15:15 15:30 15:45 16:00 Pulse 140 144 146 142 Resp 22 Pulse Ox 100 99 99 100 11/04/19 11/04/19 11/04/19 11/04/19 16:15 16:30 16:45 17:00 Pulse 140 142 136 100 Resp 22 Pulse Ox 100 99 99 100 11/04/19 11/04/19 11/04/19 11/04/19 17:15 17:30 17:45 18:00 Pulse 96 98 98 90 Resp 22 20 18 18 Pulse Ox 99 99 99 99 11/04/19 11/04/19 11/04/19 11/04/19 18:28 19:13 19:28 19:43 Pulse 83 100 86 92 Resp 18 18 18 18 Pulse Ox 98 98 98 98 11/04/19 11/04/19 11/04/19 11/04/19 19:58 20:13 20:30 20:45 Temp 97.9 97.9 Pulse 88 84 87 Resp 22 18 B/P (MAP) 142/68 (92) 129/74 (92) Pulse Ox 99 99 99 O2 Delivery Room Air 11/04/19 11/04/19 11/04/19 11/04/19 21:00 21:00 21:15 21:30 B/P (MAP) 122/90 (101) 124/75 (91) 124/53 (76) O2 Delivery Room Air 11/04/19 11/04/19 11/04/19 11/05/19 22:00 22:30 23:30 00:00 Temp 98.3 98.3 Pulse 82 Resp 20 B/P (MAP) 125/77 (93) 136/71 (92) 99/58 (72) 95/54 (68) Pulse Ox 98 O2 Delivery Room Air 11/05/19 11/05/19 11/05/19 11/05/19 01:00 02:00 03:20 04:00 Temp 98.1 98.1 Pulse 65 Resp 18 B/P (MAP) 98/59 (72) 92/57 (69) 102/61 (75) 115/64 (81) Pulse Ox 98 O2 Delivery Room Air 11/05/19 11/05/19 11/05/19 05:00 06:00 07:27 Temp 98.1 98.1 Pulse 79 Resp 18 B/P (MAP) 116/71 (86) 122/71 (88) 126/71 (89) Pulse Ox 99 O2 Delivery Room Air Intake and Output 11/04/19 11/04/19 11/05/19 15:00 23:00 07:00 Intake Total 1050 ml 400 ml Output Total 150 ml Balance 900 ml 400 ml Justicifation of Admission Dx: Justifications for Admission: Justification of Admission Dx: Yes CHF: Cardiac Arrhythmias CHERI PALMER MD Nov 05, 2019 08:51
[2019-11-05] MEDS ORDERED: diphenhydrAMINE HCL 25 MG CAPSULE PO PRN (09:00)
[2019-11-05] MEDS ORDERED: POTASSIUM CHLORIDE 20 MEQ TABLET.ER. PO ONE (09:00)
[2019-11-05] MEDS ORDERED: CETIRIZINE HCL 10 MG TABLET. PO SCH (09:00)
--- NOTE | 2019-11-05 10:57 | EKG ---
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
[2019-11-05] MEDS ORDERED: METOPROLOL TART IMMED RELEASE 25 MG TABLET. PO SCH (11:00)
[2019-11-05] MEDS ORDERED: ASPIRIN 325 MG TABLET PO SCH (12:00)
--- NOTE | 2019-11-05 12:09 | NUR ---
SS following for discharge planning. SS reviewed pt chart and discussed with pt RN. Pt is from home and currently on room air. ECHO ordered. PT ordered. SS will continue to follow for discharge planning.
[2019-11-05] MEDS ORDERED: TRAZ-118 PO (12:29)
[2019-11-05] MEDS ORDERED: METO25TA4 PO (12:29)
--- NOTE | 2019-11-05 12:36 | PDOC3 ---
Discharge Summary Visit Information Date of Admission: Nov 04, 2019 Date of Discharge: Nov 05, 2019 Admitting Diagnosis: Atrial flutter with rapid ventricular response Final Diagnosis Problems Medical Problems: (1) Atrial flutter with rapid ventricular response Status: Acute (2) Hypomagnesemia syndrome Status: Acute Brief Hospital Course Allergies Allergies Coded Allergies Type Severity Reaction Last Updated Verified [place] And Derivatives Allergy Severe ANAPHYLATIC 02/23/17 Yes Sulfa (Sulfonamide Antibiotics) Allergy Severe HIVES 02/23/17 Yes Vital Signs Vital Signs Date Time Temp Pulse Resp B/P (MAP) Pulse Ox O2 Delivery O2 Flow Rate FiO2 11/05/19 10:38 76 142/80 11/05/19 10:29 98.2 18 97 Room Air 98.2 11/04/19 14:26 3.0 Lab Results Laboratory Tests Test 11/04/19 14:26 11/04/19 15:58 11/05/19 04:25 White Blood Count 6.0 x10^3/uL (4.0-11.0) Red Blood Count 4.35 x10^6/uL (3.50-5.40) Hemoglobin 13.7 g/dL (12.0-15.5) Hematocrit 40.8 % (36.0-47.0) Mean Corpuscular Volume 94 fL (79-100) Mean Corpuscular Hemoglobin 31 pg (25-35) Mean Corpuscular Hemoglobin Concent 34 g/dL (31-37) Red Cell Distribution Width 14.0 % (11.5-14.5) Platelet Count 466 x10^3/uL (140-400) Neutrophils (%) (Auto) 65 % (31-73) Lymphocytes (%) (Auto) 28 % (24-48) Monocytes (%) (Auto) 6 % (0-9) Eosinophils (%) (Auto) 0 % (0-3) Basophils (%) (Auto) 1 % (0-3) Neutrophils # (Auto) 3.9 x10^3/uL (1.8-7.7) Lymphocytes # (Auto) 1.7 x10^3/uL (1.0-4.8) Monocytes # (Auto) 0.4 x10^3/uL (0.0-1.1) Eosinophils # (Auto) 0.0 x10^3/uL (0.0-0.7) Basophils # (Auto) 0.1 x10^3/uL (0.0-0.2) Prothrombin Time 13.1 SEC (11.7-14.0) Prothromb Time International Ratio 1.0 (0.8-1.1) Activated Partial Thromboplast Time 28 SEC (24-38) Sodium Level 143 mmol/L (136-145) 136 mmol/L (136-145) Potassium Level 4.6 mmol/L (3.5-5.1) 3.8 mmol/L (3.5-5.1) Chloride Level 103 mmol/L (98-107) 103 mmol/L (98-107) Carbon Dioxide Level 20 mmol/L (21-32) 23 mmol/L (21-32) Anion Gap 20 (6-14) 10 (6-14) Blood Urea Nitrogen 15 mg/dL (7-20) 10 mg/dL (7-20) Creatinine 1.3 mg/dL (0.6-1.0) 0.9 mg/dL (0.6-1.0) Estimated GFR (Cockcroft-Gault) 50.6 77.3 BUN/Creatinine Ratio 12 (6-20) Glucose Level 81 mg/dL (70-99) 92 mg/dL (70-99) Calcium Level 9.5 mg/dL (8.5-10.1) 8.7 mg/dL (8.5-10.1) Magnesium Level 1.6 mg/dL (1.8-2.4) 2.2 mg/dL (1.8-2.4) Total Bilirubin 0.4 mg/dL (0.2-1.0) Aspartate Amino Transf (AST/SGOT) 34 U/L (15-37) Alanine Aminotransferase (ALT/SGPT) 26 U/L (14-59) Alkaline Phosphatase 89 U/L (46-116) Troponin I Quantitative < 0.017 ng/mL (0.000-0.055) KW-Gtb-Q-Type Natriuretic Peptide 112 pg/mL (0-124) Total Protein 7.9 g/dL (6.4-8.2) Albumin 4.4 g/dL (3.4-5.0) Albumin/Globulin Ratio 1.3 (1.0-1.7) Thyroid Stimulating Hormone (TSH) 1.835 uIU/mL (0.358-3.74) Ethyl Alcohol Level 11 mg/dL (0-10) Urine Collection Type Unknown Urine Color Yellow Urine Clarity Clear Urine pH 6.5 (<5.0-8.0) Urine Specific [place] 1.020 (1.000-1.030) Urine Protein 30 mg/dL (NEG-TRACE) Urine Glucose (UA) Negative mg/dL (NEG) Urine Ketones (Stick) 15 mg/dL (NEG) Urine Blood Negative (NEG) Urine Nitrite Negative (NEG) Urine Bilirubin Negative (NEG) Urine Urobilinogen Dipstick 0.2 mg/dL (0.2 mg/dL) Urine Leukocyte Esterase Negative (NEG) Urine RBC Rare /HPF (0-2) Urine WBC 1-4 /HPF (0-4) Urine Squamous Epithelial Cells Many /LPF Urine Bacteria Moderate /HPF (0-FEW) Urine Hyaline Casts Occasional /HPF Urine Mucus Slight /LPF Urine Opiates Screen Neg (NEG) Urine Methadone Screen Neg (NEG) Urine Barbiturates Neg (NEG) Urine Phencyclidine Screen Neg (NEG) Urine Amphetamine/Methamphetamine Neg (NEG) Urine Benzodiazepines Screen Neg (NEG) Urine Cocaine Screen Neg (NEG) Urine Cannabinoids Screen Neg (NEG) Urine Ethyl Alcohol Pos (NEG) Laboratory Tests Test 11/04/19 14:26 11/04/19 15:58 11/05/19 04:25 White Blood Count 6.0 x10^3/uL (4.0-11.0) Red Blood Count 4.35 x10^6/uL (3.50-5.40) Hemoglobin 13.7 g/dL (12.0-15.5) Hematocrit 40.8 % (36.0-47.0) Mean Corpuscular Volume 94 fL (79-100) Mean Corpuscular Hemoglobin 31 pg (25-35) Mean Corpuscular Hemoglobin Concent 34 g/dL (31-37) Red Cell Distribution Width 14.0 % (11.5-14.5) Platelet Count 466 x10^3/uL (140-400) Neutrophils (%) (Auto) 65 % (31-73) Lymphocytes (%) (Auto) 28 % (24-48) Monocytes (%) (Auto) 6 % (0-9) Eosinophils (%) (Auto) 0 % (0-3) Basophils (%) (Auto) 1 % (0-3) Neutrophils # (Auto) 3.9 x10^3/uL (1.8-7.7) Lymphocytes # (Auto) 1.7 x10^3/uL (1.0-4.8) Monocytes # (Auto) 0.4 x10^3/uL (0.0-1.1) Eosinophils # (Auto) 0.0 x10^3/uL (0.0-0.7) Basophils # (Auto) 0.1 x10^3/uL (0.0-0.2) Prothrombin Time 13.1 SEC (11.7-14.0) Prothromb Time International Ratio 1.0 (0.8-1.1) Activated Partial Thromboplast Time 28 SEC (24-38) Sodium Level 143 mmol/L (136-145) 136 mmol/L (136-145) Potassium Level 4.6 mmol/L (3.5-5.1) 3.8 mmol/L (3.5-5.1) Chloride Level 103 mmol/L (98-107) 103 mmol/L (98-107) Carbon Dioxide Level 20 mmol/L (21-32) 23 mmol/L (21-32) Anion Gap 20 (6-14) 10 (6-14) Blood Urea Nitrogen 15 mg/dL (7-20) 10 mg/dL (7-20) Creatinine 1.3 mg/dL (0.6-1.0) 0.9 mg/dL (0.6-1.0) Estimated GFR (Cockcroft-Gault) 50.6 77.3 BUN/Creatinine Ratio 12 (6-20) Glucose Level 81 mg/dL (70-99) 92 mg/dL (70-99) Calcium Level 9.5 mg/dL (8.5-10.1) 8.7 mg/dL (8.5-10.1) Magnesium Level 1.6 mg/dL (1.8-2.4) 2.2 mg/dL (1.8-2.4) Total Bilirubin 0.4 mg/dL (0.2-1.0) Aspartate Amino Transf (AST/SGOT) 34 U/L (15-37) Alanine Aminotransferase (ALT/SGPT) 26 U/L (14-59) Alkaline Phosphatase 89 U/L (46-116) Troponin I Quantitative < 0.017 ng/mL (0.000-0.055) IJ-Stk-R-Type Natriuretic Peptide 112 pg/mL (0-124) Total Protein 7.9 g/dL (6.4-8.2) Albumin 4.4 g/dL (3.4-5.0) Albumin/Globulin Ratio 1.3 (1.0-1.7) Thyroid Stimulating Hormone (TSH) 1.835 uIU/mL (0.358-3.74) Ethyl Alcohol Level 11 mg/dL (0-10) Urine Collection Type Unknown Urine Color Yellow Urine Clarity Clear Urine pH 6.5 (<5.0-8.0) Urine Specific [place] 1.020 (1.000-1.030) Urine Protein 30 mg/dL (NEG-TRACE) Urine Glucose (UA) Negative mg/dL (NEG) Urine Ketones (Stick) 15 mg/dL (NEG) Urine Blood Negative (NEG) Urine Nitrite Negative (NEG) Urine Bilirubin Negative (NEG) Urine Urobilinogen Dipstick 0.2 mg/dL (0.2 mg/dL) Urine Leukocyte Esterase Negative (NEG) Urine RBC Rare /HPF (0-2) Urine WBC 1-4 /HPF (0-4) Urine Squamous Epithelial Cells Many /LPF Urine Bacteria Moderate /HPF (0-FEW) Urine Hyaline Casts Occasional /HPF Urine Mucus Slight /LPF Urine Opiates Screen Neg (NEG) Urine Methadone Screen Neg (NEG) Urine Barbiturates Neg (NEG) Urine Phencyclidine Screen Neg (NEG) Urine Amphetamine/Methamphetamine Neg (NEG) Urine Benzodiazepines Screen Neg (NEG) Urine Cocaine Screen Neg (NEG) Urine Cannabinoids Screen Neg (NEG) Urine Ethyl Alcohol Pos (NEG) Brief Hospital Course Ms Manzano is a 58yo F with no significant PMHx who presents to [facility] ED c/o via ems from work when she started to feel dizzy, lightheaded, and short of breath. She started to feel a hot flash and vomited once. She did initially have some chest pain, but it has since resolved. She denies any n,v,d fever or chills. pt states she feels like her heart is racing. This has happened in the past and it went away on its own about 1 year ago. 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 Labs show Na 143, K 4.6, Mg 1.6, BUN 15, Cr 1.3, glucose 81, TSH 1.8. CBC WNL. UDS positive for ethanol. EKG - 137bpm atrial flutter with no ST segment elevations. Started on cardizem GTT and admitted for further care. Converted to sinus overnight. Still on cardizem GTT. Awaiting echocardiogram. She is feeling less short of breath, but is still feeling weak and unsteady. Mag 2.2, K 3.8. After cardiology evaluation will change to ASA 325mg daily, metoprololol 25mg BID, cut in half if low HR or BP, and trazodone 50mg qhs prn. Echo: The left ventricular systolic function is normal and the ejection fraction is within normal range. The Ejection Fraction is 50-55%. There is normal LV segmental wall motion. Problem list: Atrial flutter with RVR - will cont cardizem. She is a good candidate for cardioversion/ablation given her excellent physical fitness and functional status, will start eliquis as well, consult cards Hypomagnesemia - possible etiology of aflutter, replaced Alcohol use - may be responsible for afib episode. No alcohol problem history Weakness and debility - will have PT evaluated gait Greater than 30 minutes spent on d/c Discharge Information Condition at Discharge: Improved Follow Up: Weeks (1) Disposition/Orders: D/C to Home Scheduled Aspirin (Aspirin) 325 Mg Tablet, 1 TAB PO DAILY for , #30 Ref 5 (Reported) Entered as Reported by: MARLON FRANKS RN on 11/05/19 5680 Metoprolol Tartrate (Metoprolol Tartrate) 25 Mg Tablet, 25 MG PO BID for Atrial flutter for 30 Days, #60 Ref 11 Prescribed by: CHERI PALMER MD on 11/05/19 1229 Scheduled PRN Trazodone Hcl (Trazodone Hcl) 50 Mg Tablet, 50 MG PO PRN QHS PRN for INSOMN IA/anxiety for 30 Days, #30 Ref 11 Prescribed by: CHERI PALMER MD on 11/05/19 1229 Discontinued Medications Meclizine Hcl (Meclizine Hcl) 25 Mg Tablet, 1 TAB PO PRN TID PRN for DIZZINESS, #30 Prescribed by: KATHRYN PHILLIPS MD on 03/27/16 1622 Ondansetron (Zofran Odt) 4 Mg Tab.rapdis, 1 TAB SL Q8HRS, #10 Prescribed by: KATHRYN PHILLIPS MD on 03/27/16 1622 Ondansetron (Zofran Odt) 4 Mg Tab.rapdis, 1 TAB SL Q8HRS, #10 Prescribed by: KATHRYN PHILLIPS MD on 08/15/16 1857 Justicifation of Admission Dx: Justifications for Admission: Justification of Admission Dx: Yes CHF: Cardiac Arrhythmias CHERI PALMER MD Nov 05, 2019 12:36
--- NOTE | 2019-11-05 12:48 | PDOC2 ---
MARGE RHODES [employer] 11/05/19 1248: CARDIAC CONSULT DATE OF CONSULT Date of Consult DATE: 11/05/19 TIME: 0945 REASON FOR CONSULT Reason for Consult: New AFIB REFERRING PHYSICIAN Referring Physician: Sofi SOURCE Source: Chart review, Patient HISTORY OF PRESENT ILLNESS HISTORY OF PRESENT ILLNESS This is a pleasant 58 yo female admitted for complains of palpitations. Reports that yesterday she felt like she was having hot flashes. She felt weak, dizzy and some SOA and also nausea. She does have hx of vertigo but none at that time. Some slight chest pain but not long lasting and mainly felt that her heart was beating fast. Over the year she has been having sensation of hot flashes but never been diagnosed with AFIB. She was on RVR upon admission and has spontaneously converted to SR with cardizem drip. She works in [employer] and she is stressed out and she does drink red wine at times at the end of the day with last use the other night to help calm her nerves and relax and also sometimes to help her sleep. She only takes benadry for allergy and MVI. She eats a lot chees and also chocolate. No excessive caffeinated beverages. No hx of VTE, CAD, CHF, stroke or thyroid issues. No falls, injury, n/v/d. PAST MEDICAL HISTORY Cardiovascular: No pertinent hx Pulmonary: No pertinent hx CENTRAL NERVOUS SYSTEM: Vertigo GI: No pertinent hx Heme/Onc: No pertinent hx Hepatobiliary: No pertinent hx Psych: No pertinent hx Musculoskeletal: Osteoarthritis Rheumatologic: No pertinent hx Infectious disease: No pertinent hx ENT: No pertinent hx Renal/: No pertinent hx Endocrine: No pertinent hx Dermatology: No pertinent hx PAST SURGICAL HISTORY Past Surgical History: Other (D & C) FAMILY HISTORY Family History: Coronary Artery Disease (father) SOCIAL HISTORY Smoke: No ALCOHOL: occassional Drugs: None Lives: with Family (spouse) CURRENT MEDICATIONS CURRENT MEDICATIONS Current Medications Medications (Trade) Dose Ordered Sig/Yolande Route PRN Reason Start Time Stop Time Status Last Admin Dose Admin Diltiazem HCl (Cardizem Iv Push) 20 mg 1X ONCE IVP 11/04/19 14:45 11/04/19 14:48 DC 11/04/19 14:59 Sodium Chloride 1,000 ml @ 1,000 mls/hr 1X ONCE IV 11/04/19 15:15 11/04/19 16:14 DC 11/04/19 15:06 Diltiazem HCl 125 mg/Sodium Chloride 125 ml @ 5 mls/hr CONT PRN IV SEE I/O RECORD 11/04/19 15:15 11/05/19 10:08 DC 11/04/19 21:53 Magnesium Sulfate 50 ml @ 25 mls/hr 1X ONCE IV 11/04/19 16:00 11/04/19 17:59 DC 11/04/19 15:51 Lorazepam (Ativan Inj) 1 mg 1X ONCE IVP 11/04/19 19:45 11/04/19 19:46 DC 11/04/19 16:49 Trazodone HCl (Desyrel) 50 mg PRN QHS PRN PO INSOMNIA 1ST CHOICE 11/04/19 21:15 11/04/19 22:01 Apixaban (Eliquis) 5 mg BID PO 11/04/19 22:00 11/05/19 10:08 DC 11/04/19 21:53 Info (Anti-Coagulation Monitoring By Pharmacy) 1 each PRN DAILY PRN MC SEE COMMENTS 11/04/19 21:15 11/05/19 10:17 DC 11/05/19 03:37 Potassium Chloride (Klor-Con) 20 meq 1X ONCE PO 11/05/19 09:00 11/05/19 09:01 DC 11/05/19 09:40 Cetirizine HCl (ZyrTEC) 10 mg DAILY PO 11/05/19 09:00 11/05/19 09:40 Metoprolol Tartrate (Lopressor) 25 mg BID PO 11/05/19 11:00 11/05/19 10:38 ALLERGIES ALLERGIES: Coded Allergies: [place] And Derivatives (Verified Allergy, Severe, ANAPHYLATIC, 02/23/17) Sulfa (Sulfonamide Antibiotics) (Verified Allergy, Severe, HIVES, 02/23/17) ROS Review of System 14 point ROs evaluated with pertinent positives noted per HPI PHYSICAL EXAM General: Alert, Oriented X3, Cooperative, No acute distress HEENT: Atraumatic, Mucous membr. moist/pink Lungs: Clear to auscultation, Normal air movement Heart: Regular rate (SR), Normal S1, Normal S2, No murmurs Abdomen: Soft, No tenderness Extremities: No cyanosis, No edema Skin: No rashes, No breakdown, No significant lesion Neuro: Normal speech, Sensation intact Psych/Mental Status: Mental status NL, Mood NL MUSCULOSKELETAL: Osteoarthritic changes both hands VITALS/I&O VITALS/I&O: Vital Signs Date Time Temp Pulse Resp B/P (MAP) Pulse Ox O2 Delivery O2 Flow Rate FiO2 11/05/19 10:38 76 142/80 11/05/19 10:29 98.2 18 97 Room Air 98.2 11/04/19 14:26 3.0 I & O 11/04/19 11/04/19 11/05/19 15:00 23:00 07:00 Intake Total 1050 ml 400 ml Output Total 150 ml Balance 900 ml 400 ml LABS Lab: Laboratory Tests Test 11/04/19 14:26 11/04/19 15:58 11/05/19 04:25 White Blood Count 6.0 x10^3/uL (4.0-11.0) Red Blood Count 4.35 x10^6/uL (3.50-5.40) Hemoglobin 13.7 g/dL (12.0-15.5) Hematocrit 40.8 % (36.0-47.0) Mean Corpuscular Volume 94 fL (79-100) Mean Corpuscular Hemoglobin 31 pg (25-35) Mean Corpuscular Hemoglobin Concent 34 g/dL (31-37) Red Cell Distribution Width 14.0 % (11.5-14.5) Platelet Count 466 x10^3/uL (140-400) H Neutrophils (%) (Auto) 65 % (31-73) Lymphocytes (%) (Auto) 28 % (24-48) Monocytes (%) (Auto) 6 % (0-9) Eosinophils (%) (Auto) 0 % (0-3) Basophils (%) (Auto) 1 % (0-3) Neutrophils # (Auto) 3.9 x10^3/uL (1.8-7.7) Lymphocytes # (Auto) 1.7 x10^3/uL (1.0-4.8) Monocytes # (Auto) 0.4 x10^3/uL (0.0-1.1) Eosinophils # (Auto) 0.0 x10^3/uL (0.0-0.7) Basophils # (Auto) 0.1 x10^3/uL (0.0-0.2) Prothrombin Time 13.1 SEC (11.7-14.0) Prothrombin Time INR 1.0 (0.8-1.1) Activated Partial Thromboplast Time 28 SEC (24-38) Sodium Level 143 mmol/L (136-145) 136 mmol/L (136-145) Potassium Level 4.6 mmol/L (3.5-5.1) 3.8 mmol/L (3.5-5.1) Chloride Level 103 mmol/L (98-107) 103 mmol/L (98-107) Carbon Dioxide Level 20 mmol/L (21-32) L 23 mmol/L (21-32) Anion Gap 20 (6-14) H 10 (6-14) Blood Urea Nitrogen 15 mg/dL (7-20) 10 mg/dL (7-20) Creatinine 1.3 mg/dL (0.6-1.0) H 0.9 mg/dL (0.6-1.0) Estimated GFR (Cockcroft-Gault) 50.6 77.3 BUN/Creatinine Ratio 12 (6-20) Glucose Level 81 mg/dL (70-99) 92 mg/dL (70-99) Calcium Level 9.5 mg/dL (8.5-10.1) 8.7 mg/dL (8.5-10.1) Magnesium Level 1.6 mg/dL (1.8-2.4) L 2.2 mg/dL (1.8-2.4) Total Bilirubin 0.4 mg/dL (0.2-1.0) Aspartate Amino Transferase (AST) 34 U/L (15-37) Alanine Aminotransferase (ALT) 26 U/L (14-59) Alkaline Phosphatase 89 U/L (46-116) Troponin I Quantitative < 0.017 ng/mL (0.000-0.055) DW-Rca-C-Type Natriuretic Peptide 112 pg/mL (0-124) Total Protein 7.9 g/dL (6.4-8.2) Albumin 4.4 g/dL (3.4-5.0) Albumin/Globulin Ratio 1.3 (1.0-1.7) Thyroid Stimulating Hormone (TSH) 1.835 uIU/mL (0.358-3.74) Ethyl Alcohol Level 11 mg/dL (0-10) H Urine Collection Type Unknown Urine Color Yellow Urine Clarity Clear Urine pH 6.5 (<5.0-8.0) Urine Specific [place] 1.020 (1.000-1.030) Urine Protein 30 mg/dL (NEG-TRACE) Urine Glucose (UA) Negative mg/dL (NEG) Urine Ketones (Stick) 15 mg/dL (NEG) Urine Blood Negative (NEG) Urine Nitrite Negative (NEG) Urine Bilirubin Negative (NEG) Urine Urobilinogen Dipstick 0.2 mg/dL (0.2 mg/dL) Urine Leukocyte Esterase Negative (NEG) Urine RBC Rare /HPF (0-2) Urine WBC 1-4 /HPF (0-4) Urine Squamous Epithelial Cells Many /LPF Urine Bacteria Moderate /HPF (0-FEW) Urine Hyaline Casts Occasional /HPF Urine Mucus Slight /LPF Urine Opiates Screen Neg (NEG) Urine Methadone Screen Neg (NEG) Urine Barbiturates Neg (NEG) Urine Phencyclidine Screen Neg (NEG) Urine Amphetamine/Methamphetamine Neg (NEG) Urine Benzodiazepines Screen Neg (NEG) Urine Cocaine Screen Neg (NEG) Urine Cannabinoids Screen Neg (NEG) Urine Ethyl Alcohol Pos (NEG) Laboratory Tests 11/04/19 14:26 Laboratory Tests 11/04/19 14:26 11/05/19 04:25 ASSESSMENT/PLAN ASSESSMENT/PLAN 1. New onset AFlutter with RVR: variable conduction now back in SR 2. LUCIANA: possibly from dehydration 3. ETOH misuse 4. Hypomagnesemia: replaced Recommendations 1. ECASA. DC cardizem and start on lopressor. MCOT as an outpt to further guide therapy and need for anticoagulation. 2. TSH, Await TTE result 3. Discussed curbing ETOH use and also caffeinated products 4. Follow up with Dr. Carlos via telehealth on 12/01 at 10 AM KAYLYNN CARLOS MD 11/05/19 3699: CARDIAC CONSULT ASSESSMENT/PLAN ASSESSMENT/PLAN Patient seen and examined. Agree with above nurse practitioner note. New onset atrial fibrillation. Low chads Vasc score. Okay to discharge on beta-ayan and aspirin. Plan for event monitoring and outpatient follow-up. MARGE RHODES APRN Nov 05, 2019 12:48 KAYLYNN CARLOS MD Nov 05, 2019 15:39
[2019-11-05] MEDS ORDERED: ASPI325T8 PO (17:30)
--- NOTE | 2019-11-05 17:54 | NUR ---
Discharge Note: [facility] Discharge instructions and discharge home medications reviewed with Patient and a copy given. All questions have been answered and understanding verbalized. Follow up appointment and new medications reviewed with patient. All belongings taken with patient upon discharge. The following instructions and handouts were given: atrial fibrillation, and metoprolol Discontinued lines and drains: Peripheral IV intact. Patient discharged to Home or Self Care with Self via Wheelchair
--- NOTE | 2019-11-06 08:23 | CARD ---
MR#: [id number] Date of Study: 11/05/2019 Ordering Physician: MARGE RHODES, Referring Physician: MARGE RHODES, Tech: Chelsea Anne APPROVED REPORT EXAM: Two-dimensional and M-mode echocardiogram with Doppler and color Doppler. Other Information Quality : AverageHR: 75bpm INDICATION Atrial Fibrillation 2D DIMENSIONS Left Atrium(2D)3.2 (1.6-4.0cm)IVSd1.1 (0.7-1.1cm) Aortic Root(2D)2.9 (2.0-3.7cm)LVDd4.9 (3.9-5.9cm) LVOT Diameter1.9 (1.8-2.4cm)PWd1.0 (0.7-1.1cm) LVDs3.3 (2.5-4.0cm)FS (%) 31.4 % SV65.5 mlLVEF(%)59.1 (>50%) Aortic Valve AoV Peak Allen.129.8cm/sAoV VTI27.6cm AO Peak GR.6.7mmHgLVOT VTI 16.02cm AO Mean GR.4mmHg Mitral Valve MV E Vtqqgwit84.3cm/sMV E Peak Gr.2mmHg MV DECEL [id number] A Swrisice66.3cm/s MV E Mean Gr.1mmHgE/A Ratio0.9 TDI Lateral E' P. V8.24cm/sMedial E' P. V6.31cm/s E/Lateral E'5.5E/Medial E'7.2 Tricuspid Valve TR P. [id number]/sRAP [id number] TR Peak Gr.[id number] LEFT VENTRICLE The left ventricle is normal size. There is normal left ventricular wall thickness. The left ventricu lar systolic function is normal and the ejection fraction is within normal range. The Ejection Fracti on is 50-55%. There is normal LV segmental wall motion. Transmitral Doppler flow pattern is Grade I-a bnormal relaxation pattern. RIGHT VENTRICLE The right ventricle is normal size. There is normal right ventricular wall thickness. The right ventr icular systolic function is normal. ATRIA The left atrium size is normal. The right atrium size is normal. The interatrial septum is intact wit h no evidence for an atrial septal defect or patent foramen ovale as noted on 2-D or Doppler imaging. AORTIC VALVE The aortic valve is normal in structure and function. Doppler and Color Flow revealed trace aortic re gurgitation. There is no significant aortic valvular stenosis. Calculated aortic valve area is 1.65 c m2 with maximum pressure gradient of 8 mmHg and mean pressure gradient of 4 mmHg. MITRAL VALVE The mitral valve is normal in structure and function. There is no evidence of mitral valve prolapse. There is no mitral valve stenosis. Doppler and Color-flow revealed trace mitral regurgitation. TRICUSPID VALVE The tricuspid valve is normal in structure and function. Doppler and Color Flow revealed trace to mil d tricuspid regurgitation with an estimated PAP of 29 mmHg. There is no tricuspid valve stenosis. PULMONIC VALVE The pulmonic valve is not well visualized. Doppler and Color Flow revealed trace pulmonic valvular re gurgitation. There is no pulmonic valvular stenosis. GREAT VESSELS The aortic root is normal in size. The IVC is normal in size and collapses >50% with inspiration. PERICARDIAL EFFUSION There is no evidence of significant pericardial effusion. Critical Notification Critical Value: No <Conclusion> The left ventricular systolic function is normal and the ejection fraction is within normal range. Th e Ejection Fraction is 50-55%. There is normal LV segmental wall motion. Signed by : Flaquito Marquez, Electronically Approved : 11/06/2019 08:22:19
== END 2019-11-05 17:55 | disposition home or self-care (01) | DRG 309 ==
LOC: ER 14:14 → ED HOLD 16:35 → 2 SOUTH 18:38
PROVIDERS: ADMIT Internal Medicine; ATTEND Internal Medicine
DX: I48.92 Unspecified atrial flutter (principal); N17.9 Acute kidney failure, unspecified; I48.91 Unspecified atrial fibrillation; I50.9 Heart failure, unspecified; N95.1 Menopausal and female climacteric states; E83.42 Hypomagnesemia; Z79.82 Long term (current) use of aspirin; Z82.49 Family history of ischemic heart disease and other diseases of the circulatory system; M19.90 Unspecified osteoarthritis, unspecified site; Z88.8 Allergy status to other drugs, medicaments and biological substances
CPT/HCPCS: 36415; 71045; 80048; 80053; 80307; 81001; 83735; 83880; 84443; 84484; 85025; 85610; 85730; 87086; 93005; 93306; 96360; 96361; 96365; 96366; 96375; 99285; G0480; J2060; J3475; J3490; J7030; G0378

== ENCOUNTER 2021-04-27 17:46 | Emergency (ER) | payer BC ==
[2019-11-05 14:38] VITALS: BP 120/73
[~2021-04-27 17:46] MED LIST changes: +ASPI325T8 PO; +METO25TA4 PO; +TRAZ-118 PO
[2021-04-28] MEDS ORDERED: LEVO5TAB2 PO (13:23)
[2021-04-28] MEDS ORDERED: SERT50TA PO (13:23)
[2021-04-28] MEDS ORDERED: ZOLP5TAB5 PO (13:23)
[2021-04-30] MEDS ORDERED: SCOP1PAT12 TP (12:36)
[2021-04-30] MEDS ORDERED: MECL12.582 PO (12:36)
== END 2021-04-27 20:12 | disposition left against medical advice (07) ==
LOC: ER 17:46
DX: F41.9 Anxiety disorder, unspecified (principal); Z53.21 Procedure and treatment not carried out due to patient leaving prior to being seen by health care provider